=== PATIENT | female | born 1955 | race Two or more races ===

== ENCOUNTER 2017-05-13 02:15 | Emergency (ER) | payer MEDICAID ==
[~2017-05-13] VITALS: Ht 160 cm; Wt 57.2 kg
[2017-05-13 02:15] VITALS: BP 117/63
[~2017-05-13 02:15] MED LIST: SYNTHROID88 MCG ORAL
[2017-05-13] MEDS ORDERED: Norco 5mg/325mg tab ORAL ONE (02:45)
[2017-05-13 04:19] LABS: BASOPHILS % (AUTO) 0.4 % (0.0-2.0); EOSINOPHILS % (AUTO) 0.3 % (0.0-3.0); LYMPHOCYTES % (AUTO) 14.9 % (20.0-45.0); MEAN CORPUSCULAR HEMOGLOBIN 29.6 PG (27.0-31.0); MEAN CORPUSCULAR HGB CONC 32.5 G/DL (32.0-36.0); MEAN CORPUSCULAR VOLUME 91 FL (80-99); MEAN PLATELET VOLUME 7.7 FL (6.5-10.1); MONOCYTES % (AUTO) 9.2 % (1.0-10.0); NEUTROPHILS % (AUTO) 75.3 % (45.0-75.0); PLATELET COUNT 177 K/UL (150-450); RED BLOOD COUNT 3.97 M/UL (4.20-5.40); RED CELL DISTRIBUTION WIDTH 11.1 % (11.6-14.8); WHITE BLOOD COUNT 12.7 K/UL (4.8-10.8)
[2017-05-13 04:30] VITALS: BP 109/51
[2017-05-13 04:35] LABS: ANION GAP 12 (5-15); CALCIUM 8.6 mg/dL (8.6-10.2); CARBON DIOXIDE 24 mEQ/L (20-30); CHLORIDE 103 mEQ/L (98-107); CREATININE 0.7 mg/dL (0.5-0.9); GLOMERULAR FILTRATION RATE > 60 mL/min (>60); HEMOLYSIS 3; POTASSIUM 3.5 mEQ/L (3.4-4.9); SODIUM 139 mEQ/L (135-145)
[2017-05-13 04:36] LABS: TROPONIN I < 0.30 ng/mL (<=0.30)
[2017-05-13 04:53] LABS: APPEARANCE,URINE CLEAR; KETONES,URINE NEGATIVE (NEGATIVE); LEUKOCYTE ESTERASE ,URINE 1+ (NEGATIVE); NITRITE,URINE NEGATIVE (NEGATIVE); PH,URINE 7 (4.5-8.0); PROTEIN,URINE NEGATIVE (NEGATIVE); UROBILINOGEN,URINE NORMAL MG/DL (0.0-1.0)
[2017-05-13 04:54] LABS: RBC,URINE 0-2 /HPF (0 - 2); SQUAMOUS EPITHELIAL CELL,UR FEW /LPF (NONE/OCC)
[2017-05-13] MEDS ORDERED: HYDROCODON-ACE1 EA15 ORAL (04:55)
--- NOTE | 2017-05-13 04:56 | Emergency Room Report ---
History of Present Illness General Chief Complaint: Syncope Source: Patient Present Illness HPI Is a 61-year-old female with hypothyroidism. She said her blood pressure normally run low. She presents with syncope tonight. She got up to go to the bathroom and had a syncopal episode. Family heard a crash and saw her lying on the ground. She complaining of headache secondary to injury. Also complaining of right elbow pain. No other injury. Pain is 8/10. No nausea no vomiting. no diaphoresis. No chest pain. Allergies: Coded Allergies: No Known Allergies (Unverified , 05/13/17) Patient History Past Medical History: see triage record, old chart reviewed Past Surgical History: other Pertinent Family History: none Social History: Denies: smoking Now: No Immunizations: other Reviewed Nursing Documentation: PMH: Agreed, PSxH: Agreed Review of Systems Eye: Denies: eye pain, blurred vision ENT: Denies: ear pain, nose congestion, throat swelling Respiratory: Denies: cough, shortness of breath Cardiovascular: Denies: chest pain, palpitations Gastrointestinal: Denies: abdominal pain, diarrhea, nausea, vomiting Musculoskeletal: Denies: back pain, joint pain Skin: Denies: rash Neurological: Denies: headache, numbness Endocrine: Denies: increased thirst, increased urine Hematologic/Lymphatic: Denies: easy bruising All Other Systems: negative except mentioned in HPI Physical Exam Vital Signs Date Time Temp Pulse Resp B/P (MAP) Pulse Ox O2 Delivery O2 Flow Rate FiO2 05/13/17 02:09 98.1 74 16 117/64 100 Room Air vitals normal Sp02 EP Interpretation: reviewed, normal General Appearance: well appearing, no apparent distress, alert Head: normocephalic, atraumatic Eyes: bilateral eye PERRL, bilateral eye EOMI ENT: hearing grossly normal, normal pharynx Neck: full range of motion, supple, no meningismus Respiratory: chest non-tender, lungs clear, normal breath sounds Cardiovascular #1: regular rate, rhythm, no murmur Gastrointestinal: normal bowel sounds, non tender, no mass, no organomegaly, no bruit, non-distended Musculoskeletal: back normal, gait/station normal, normal range of motion, other - Right elbow: Tenderness over the radial aspect of the elbow. Full range of motion. Said she nl. Psychiatric: mood/affect normal Skin: warm/dry Procedures Splinting Splinting : Consent: Verbal Location: Right elbow Hand-Made Type: plaster Splint: Posterior elbow Pre-Proc Neuro Vasc Exam: normal Post-Proc Neuro Vasc Exam: normal Patient Tolerated: Well Complications: None Medical Decision Making Diagnostic Impression: Primary Impression: Syncope Qualified Codes: R55 - Syncope and collapse Additional Impressions: Head injury, acute Qualified Codes: S09.90XA - Unspecified injury of head, initial encounter Supracondylar fracture of humerus Qualified Codes: S42.411A - Displaced simple supracondylar fracture without intercondylar fracture of right humerus, initial encounter for closed fracture ER Course Patient presents with syncope. Probably secondary to orthostatic. No evidence of intracranial bleed or fracture. She does have a fat pad sign of the right elbow. She has a nondisplaced supracondylar fracture. Patient splinted. We' ll discharge home. Lab Results Impression labs normal EKG Diagnostic Results Rate: normal Rhythm: NSR ST Segments: no acute changes Rhythm Strip Diag. Results Rhythm Strip Time: 04:54 EP Interpretation: yes Rate: 74 Rhythm: NSR, no PVC's, no ectopy Other X-Ray Diagnostic Results Other X-Ray Diagnostic Results : X-Ray ordered: Right elbow x-rays # of Views/Limited Vs Complete: 3 View Indication: Pain EP Interpretation: Yes Interpretation: no dislocation, no soft tissue swelling, other - Fat pad sign. Supracondylar fracture. Impression: Other - Supracondylar fracture, nondisplaced Electronically Signed by: Electronically signed by Luis Landis MD Last Vital Signs Date Time Temp Pulse Resp B/P (MAP) Pulse Ox O2 Delivery O2 Flow Rate FiO2 05/13/17 04:38 98.1 05/13/17 04:30 73 20 109/51 100 Room Air Status: improved Disposition: HOME, SELF-CARE Condition: Stable Scripts Hydrocodone/Acetaminophen 5-325* (HYDROCODONE/ACETAMINOPHEN 5-325*) 1 Each Tablet 1 TAB ORAL Q6H Y for For Pain, #15 TAB 0 Refills Prov: LUIS LANDIS M.D. 05/13/17 Referrals: [facility],REFERRING (PCP) Patient Instructions: Syncope Additional Instructions: Followup with your Dr. in 2-3 days. You would need a referral to see a bone doctor. Return if symptom worsen. Bring your x-rays with you. LUIS LANDIS M.D. May 13, 2017 04:56
[2017-05-13 05:15] VITALS: BP 109/51
[2017-05-13] MEDS ORDERED: Meclizine 25mg tab ORAL ONE (05:30)
[2017-05-13 05:45] VITALS: BP 109/51
--- NOTE | 2017-05-13 09:31 | Diagnostic Imaging Report ---
Indication: TRAUMA pain syncope status post fall Technique: Continuous helical CT scanning of the head was performed without intravenous contrast material. Axial and coronal 5 mm sections were generated. Radiation dose was minimized using automated exposure control Dose: Total Dose Length Product - DLP [address] Dose Index - CTDIvol(s) 70.38 mGy. Comparison: None Findings: The ventricular system is normal in size and configuration. There is no shift of midline structures. No abnormal extra-axial fluid collections are noted. There is no evidence of intracerebral bleeding. No other abnormal high or low density areas are noted within the brain. There is minimal sphenoid sinus mucosal thickening Impression: Normal CT scan of the head without contrast material. Minimal sinus disease This agrees with the preliminary interpretation provided overnight by [facility]. The CT scanner at [facility] is accredited by the [employer] and the scans are performed using protocols designed to limit radiation exposure to as low as reasonably achievable to attain images of sufficient resolution adequate for diagnostic evaluation.
--- NOTE | 2017-05-13 10:33 | Diagnostic Imaging Report ---
Indications:TRAUMA Technique: Three or 4 views of the right elbow Comparison: None Findings:There is mild elevation of the posterior fat pad, marked elevation of anterior fat pad, consistent with the presence of a joint effusion. No definite acute fractures are visible. Impression:No definite acute fracture demonstrated. However, presence of a joint effusion is highly suspicious for an occult fracture. Recommend followup radiograph in 7-10 days This agrees with the preliminary interpretation provided by the emergency room physician.
== END 2017-05-13 05:49 | disposition home or self-care (01) ==
LOC: EDBD 02:15 → EMR 02:20
DX: R55 Syncope and collapse (principal); S09.90XA Unspecified injury of head, initial encounter; S42.411A Displaced simple supracondylar fracture without intercondylar fracture of right humerus, initial encounter for closed fracture; W19.XXXA Unspecified fall, initial encounter; Y93.9 Activity, unspecified; Y92.9 Unspecified place or not applicable; J32.9 Chronic sinusitis, unspecified
CPT/HCPCS: 29125; 36415; 70450; 80048; 81001; 84484; 85025; 93005; 99284